=== PATIENT | female | born 1955 | race Caucasian/White ===

== ENCOUNTER 2016-08-10 09:40 | Emergency (ER) | payer SELFPAY ==
[2016-08-10 09:59] VITALS: BP 140/86; PULSE 97; TEMP 99.7; BMI 26.6
--- NOTE | 2016-08-10 10:47 | PDOC ---
History of Present Illness - General Chief Complaint: Cold Symptoms Stated Complaint: COUGH FEVER PAIN Time Seen by Provider: 08/10/16 10:04 History Source: Patient, Family Exam Limitations: No Limitations - History of Present Illness Initial Comments: 08/10/16 10:36 Patient is here with complaints of generalized body aches, nonproductive cough, fevers Tmax 101, earache and sore throat pain. States thinks may have influenza 08/10/16 14:08 Timing/Duration: reports: constant, changing over time, getting worse Severity: reports: moderate Associated Symptoms: reports: cough, dizziness, fever/chills, headache, muscle aches, nasal drainage, sore throat Past History - Travel Traveled outside of the country in the last 30 days: No Close contact w/someone who was outside of country & ill: No - Past Medical History Allergies/Adverse Reactions: Allergies Allergy/AdvReac Type Severity Reaction Status Date / Time No Known Allergies Allergy Verified 08/10/16 09:59 Home Medications: Ambulatory Orders Oseltamivir Phosphate [Tamiflu -] 75 mg PO BID #10 capsule 08/10/16 HTN: Yes Hypercholesterolemia: Yes Psychiatric Problems: Yes (DEPRESSION) - Psycho/Social/Smoking Cessation Hx Suicidal Ideation: No Smoking Status: No Smoking History: Never smoked Number of Cigarettes Smoked Daily: 0 Information on smoking cessation initiated: No Hx Alcohol Use: No Drug/Substance Use Hx: No Substance Use Type: None Respiratory Specific PMHX - Complaint Specific PMHX Angina: No Review of Systems - Review of Systems Able to Perform ROS?: Yes Is the patient limited German proficient: Yes Constitutional: Yes: Symptoms Reported, See HPI, Chills, Fever, Malaise, Weakness HEENTM: Yes: Symptoms Reported Respiratory: Yes: Symptoms reported, See HPI, Cough All Other Systems: Reviewed and Negative *Physical Exam - Vital Signs Last Vital Signs Temp Pulse Resp BP Pulse Ox 99.7 F H 97 H 18 140/86 99 08/10/16 09:55 08/10/16 09:55 08/10/16 09:55 08/10/16 09:55 08/10/16 09:55 - Physical Exam General Appearance: Yes: Nourished, Appropriately Dressed, Apparent Distress, Mild Distress, Moderate Distress HEENT: positive: GRAYSON, Tonsillar Erythema (no exudate or swelling), Rhinorrhea. 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, Fully Oriented, Alert, Normal Mood/ Affect, Normal Response, Motor Strength /5 Progress Note - Progress Note Progress Note: Upper respiratory infection, probable influenza, we'll treat with Tamiflu *DC/Admit/Observation/Transfer Diagnosis at time of Disposition: Upper respiratory infection, acute - Discharge Dispostion Disposition: HOME Condition at time of disposition: Stable Admit: No - Prescriptions Prescriptions: Oseltamivir Phosphate [Tamiflu -] 75 mg PO BID #10 capsule - Patient Instructions Printed Discharge Instructions: DI for Viral Upper Respiratory Infection -- Adult Additional Instructions: Rest, drink lots of fluids: Teas, water, soups, Pedialyte Saltwater gargles Steamy showers/seem to face break up mucus Old-fashioned treatments help! Avoid contact with others until fevers and cough resolved as this is very contagious Lots of handwashing and good hygiene Continue [id number] medications for symptomatic relief Tylenol or Motrin for fever and pain Take all of Tamiflu as directed: 1 tab every 12 hours for 5 days Followup with private physician in one to 2 days as needed or if worsening Return to emergency department for worsened symptoms, fevers, dehydration Influenza takes between 5 and 7 days for resolution To not participate in any activity, work, or school until fevers and cough are gone for at least one day - Post Discharge Activity Work/School Note: Back to Work
== END 2016-08-10 10:57 | disposition home or self-care (01) ==
LOC: JERFT 09:40
DX: J06.9 Acute upper respiratory infection, unspecified (principal); B97.89 Other viral agents as the cause of diseases classified elsewhere; I10 Essential (primary) hypertension; E78.00 Pure hypercholesterolemia, unspecified; F32.9 Major depressive disorder, single episode, unspecified
CPT/HCPCS: 99281-25

== ENCOUNTER 2019-07-13 13:09 | Emergency (ER) | payer OTHER ==
[2019-07-13 13:33] VITALS: BMI 25.9
--- NOTE | 2019-07-13 14:41 | PDOC ---
History of Present Illness - General Chief Complaint: Headache Stated Complaint: HEADACHE History Source: Patient Exam Limitations: No Limitations - History of Present Illness Initial Comments: 63 y/o F, pmh of DM, HTN, HLD, anxiety, depression, presents to the ED c/o of left occipital headache that started on Thursday and has since worsened, aggravated by palpation and not relieved by otc medications. Pt reports that she has not had any headaches or migraines in the past. She had one episode of syncope and htn in December, during which she was seen at [facility] and cleared of any acute pathology. Denies f/c/n/v/d, chest pain, abdominal pain. 07/13/19 14:39 07/13/19 14:56 Associated Symptoms: reports: denies symptoms, headaches. denies: chest pain, nausea/vomiting, shortness of breath Past History - Past Medical History Allergies/Adverse Reactions: Allergies Allergy/AdvReac Type Severity Reaction Status Date / Time No Known Allergies Allergy Verified 07/13/19 13:29 Home Medications: Ambulatory Orders Oseltamivir Phosphate [Tamiflu -] 75 mg PO BID #10 capsule 08/10/16 Ibuprofen [Motrin -] 600 mg PO TID PRN 10 Days tablet 07/13/19 COPD: No HTN: Yes Hypercholesterolemia: Yes Psychiatric Problems: Yes (DEPRESSION) - Immunization History Immunization Up to Date: Yes - Psycho Social/Smoking Cessation Hx Smoking Status: No Smoking History: Never smoked Number of Cigarettes Smoked Daily: 0 Information on smoking cessation initiated: No Hx Alcohol Use: No Drug/Substance Use Hx: No Substance Use Type: None Review of Systems - Review of Systems Able to Perform ROS?: Yes Is the patient limited Stateless proficient: No Constitutional: Yes: Symptoms Reported, Weight Stable. No: Chills, Diaphoresis , Fever HEENTM: Yes: Symptoms Reported. No: Tearing, Ear Pain Respiratory: Yes: Symptoms reported. No: Cough, Orthopnea, Shortness of Breath Cardiac (ROS): Yes: Symptoms Reported. No: Chest Pain, Edema, Chest Tightness ABD/GI: Yes: Symptoms Reported. No: Constipated, Diarrhea, Nausea, Vomiting Neurological: Yes: Symptoms reported, Headache. No: Numbness, Paresthesia, Tremors, Weakness All Other Systems: Reviewed and Negative *Physical Exam - Vital Signs Last Vital Signs Temp Pulse Resp BP Pulse Ox 98.0 F 78 17 132/87 98 07/13/19 13:29 07/13/19 13:29 07/13/19 13:29 07/13/19 13:29 07/13/19 13:29 - Physical Exam General Appearance: Yes: Nourished, Appropriately Dressed HEENT: positive: EOMI, GRAYSON, Normal ENT Inspection, Pharynx Normal, Other (left scalp pain and tenderness, mild erythema ). negative: Photophobia Neck: positive: Trachea midline, Normal Thyroid, Supple Respiratory/Chest: positive: Lungs Clear, Normal Breath Sounds. negative: Crackles, Wheezing Cardiovascular: positive: Regular Rhythm, Regular Rate, S1, S2. negative: Murmur, Gallop/S3, Gallop/S4 Vascular Pulses: Dorsalis-Pedis (R): 2+, Doralis-Pedis (L): 2+ Gastrointestinal/Abdominal: positive: Normal Bowel Sounds, Soft. negative: Guarding, Rebound, Tenderness Neurologic: positive: Fully Oriented, Normal Mood/Affect. 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 ED Treatment Course - LABORATORY CBC & Chemistry Diagram: 07/13/19 15:00 07/13/19 15:00 Medical Decision Making - Medical Decision Making 63 y/o F, pmh of DM, HTN, HLD, anxiety, depression, presents to the ED c/o of left occipital headache that started on Thursday and has since worsened, aggravated by palpation and not relieved by otc medications #Headaches likely 2/2 to allergic reaction vs HTN CBC, CMP CT Head w/out contrast IV tylenol 07/13/19 15:00 Discharge - Discharge Information Problems reviewed: Yes Clinical Impression/Diagnosis: Generalized headaches Condition: Improved Disposition: HOME - Admission No - Additional Discharge Information Prescriptions: Ibuprofen [Motrin -] 600 mg PO TID PRN 10 Days tablet PRN Reason: Headache - Follow up/Referral Referrals: Alma Jurado MD [Primary Care Provider] - John Lynch MD [Staff Physician] - - Patient Discharge Instructions Additional Instructions: You were seen in the emergency room for headaches While in the emergency room, we evaluated you with lab work, blood work and CAT scan of your head. We gave you medications and your symptoms improved. We also found that your CAT scan was normal but there was some mild volume loss noted. It is important that you follow up with a neurologist to address these findings. We have provided you with a neurologist as well. To relieve your headaches, you can take the following medications Motrin as needed for the headaches Please take all your medications as prescribed Please follow up the the neurologist within 1 week Please follow up with your primary care physician within 1 week Return to the emergency room, if you experience worsening of your symptoms, nausea, vomiting, headaches, changes in vision, or any worsening of your condition. - Post Discharge Activity Work/Back to School Note: Back to Work
[2019-07-13] MEDS ORDERED: ACETAMINOPHEN 1000 MG/100 ML VIAL (NON FORMULARY) IVPB ONE (14:42)
[2019-07-13] MEDS ORDERED: ACETAMINOPHEN INJECTION 100 ML IVPB ONE (14:54)
[2019-07-13 15:19] LABS: BASO % 0.5 % (0-2.0); EOS % 1.2 % (0-4.5); HEMATOCRIT 39.9 % (32.4-45.2); LYMPH % 29.6 % (8-40); MCH 26.5 pg (25.7-33.7); MCHC 32.5 g/dl (32.0-36.0); MEAN CELL VOLUME 81.7 fl (80-96); MEAN PLT VOLUME 7.6 fl (7.5-11.1); MONO % 5.7 % (3.8-10.2); PLATELET COUNT 373 K/MM3 (134-434); RBC 4.88 M/mm3 (3.60-5.2); RDW 14.6 % (11.6-15.6); WHITE BLOOD COUNT 6.4 K/mm3 (4.0-10.0)
[2019-07-13 15:58] LABS: ALBUMIN 3.8 g/dl (3.4-5.0); BILIRUBIN,TOTAL 0.2 mg/dL (0.2-1); CALCIUM 9.3 mg/dL (8.5-10.1); CREATININE 0.8 mg/dL (0.55-1.3); TOT PROT 7.2 g/dl (6.4-8.2)
--- NOTE | 2019-07-13 16:55 | PDOC ---
Documentation entered by Sebastian Castillo SCRIBE, acting as scribe for Zeynep Dalton MD. Zeynep Dalton MD: This documentation has been prepared by the Jonathan duron Nirvannie, SCRIBE, under my direction and personally reviewed by me in its entirety. I confirm that the documentation accurately reflects all work, treatment, procedures, and medical decision making performed by me. Attending Attestation - Resident Resident Name: JamacrusHarish - ED Attending Attestation I have performed the following: I have examined & evaluated the patient, The case was reviewed & discussed with the resident, I agree w/resident's findings & plan, Exceptions are as noted - HPI HPI: 07/13/19 14:32 The patient is a 63 year old female, with a significant past medical history of DM, HTN, HLD, anxiety, depression, who presents to the emergency department with 4 days of progressively worsening left sided posterior occipital headache. She denies photophobia or phonophobia. She denies recent fevers, chills, or dizziness. She denies recent nausea, vomiting, diarrhea or constipation. She denies recent dysuria, frequency, urgency or hematuria. She denies recent chest pain or shortness of breath. pt describes her pain as scalp sensitivity and pain. has been constant. no mod factors. has taken tylenol for her pain mild relief. no f/c no trauma. no blurry vision or other vision changes. no weakness. no h/o similar pain. Allergies: NKDA Primary Care Physician: Dr. Jurado 07/13/19 16:52 - Physicial Exam PE: 07/13/19 16:53 awake alert lungs clear bilat heart rrr no mrg abd soft nt nd ext wwp. no edema. no calf tenderness. 5/5 all four ext. no temporal art tenderness. speech clear, CN intact. - Medical Decision Making 07/13/19 16:54 63 yo F here wiht headache. due to fact this is new headache, will obtain ct head, labs pain control and reassess.
[2019-07-13 17:39] VITALS: BP 128/84; PULSE 85; TEMP 98.1
== END 2019-07-13 17:39 | disposition home or self-care (01) ==
LOC: JER 13:09
PROC: 3E033NZ Introduction of Analgesics, Hypnotics, Sedatives into Peripheral Vein, Percutaneous Approach (ICD-10-PCS; principal; 2019-07-13)
DX: R51 Headache (principal); I10 Essential (primary) hypertension; E78.5 Hyperlipidemia, unspecified; E11.9 Type 2 diabetes mellitus without complications; F41.8 Other specified anxiety disorders; F32.9 Major depressive disorder, single episode, unspecified
CPT/HCPCS: 36415; 70450-TC; 80053; 85025; 99282-25; J0131

== ENCOUNTER 2019-08-26 22:25 | Emergency (ER) | payer OTHER ==
[2019-08-26 22:30] VITALS: BP 156/85; PULSE 69; TEMP 97.6; BMI 25.7
--- NOTE | 2019-08-26 23:19 | PDOC ---
History of Present Illness <JoseRadha - Last Filed: 08/27/19 01:12> - General History Source: Patient Exam Limitations: No Limitations - History of Present Illness Initial Comments: 08/26/19 23:20 63yF w PMHx DM, HTN, HLD, anxiety, depression presenting w 3d progressively worsening R constant moderate lumbar paraspinal pain radiating forward to suprapubic region. Used ibuprofen without relief. Denies trauma. Denies fever, diarrhea/constipation, pyuria, vaginal bleeding, ABD distension. <Amarilis,Migel - Last Filed: 08/27/19 07:37> - General Chief Complaint: Pain Stated Complaint: BACK PAIN Time Seen by Provider: 08/26/19 23:19 Past History <GarciaRadha - Last Filed: 08/27/19 01:12> - Past Medical History COPD: No Diabetes: Yes HTN: Yes Hypercholesterolemia: Yes Psychiatric Problems: Yes (DEPRESSION) - Immunization History Immunization Up to Date: Yes - Psycho Social/Smoking Cessation Hx Smoking Status: No Smoking History: Never smoked Number of Cigarettes Smoked Daily: 0 Hx Alcohol Use: No Drug/Substance Use Hx: No Substance Use Type: None <Amarilis,Migel - Last Filed: 08/27/19 07:37> - Past Medical History Allergies/Adverse Reactions: Allergies Allergy/AdvReac Type Severity Reaction Status Date / Time Penicillins Allergy Verified 08/26/19 22:30 ibuprofen AdvReac Verified 08/26/19 22:30 Home Medications: Ambulatory Orders Oseltamivir Phosphate [Tamiflu -] 75 mg PO BID #10 capsule 08/10/16 Ibuprofen [Motrin -] 600 mg PO TID PRN 10 Days tablet 07/13/19 Lidocaine 5% Patch [Lidoderm Patch -] 1 patch TP DAILY #30 patch 08/27/19 Methocarbamol [Robaxin -] 500 mg PO TID #30 tablet 08/27/19 Review of Systems - Review of Systems Constitutional: No: Chills, Fever HEENTM: No: Eye Pain, Nose Pain Respiratory: No: Cough, Shortness of Breath Cardiac (ROS): No: Chest Pain, Palpitations ABD/GI: No: Abdominal Distended, Constipated, Diarrhea, Nausea, Vomiting : No: Burning, Dysuria Musculoskeletal: No: Back Pain, Joint Pain Integumentary: No: Bruising, Flushing Neurological: No: Headache, Numbness, Seizure Psychiatric: No: Anxiety, Depression Endocrine: No: Intolerance to Cold, Intolerance to Heat Hematologic/Lymphatic: No: Anemia, Blood Clots <Migel Olmos - Last Filed: 08/27/19 07:37> *Physical Exam - Vital Signs Last Vital Signs Temp Pulse Resp BP Pulse Ox 97.6 F 69 18 156/85 99 08/26/19 22:28 08/26/19 22:28 08/26/19 22:28 08/26/19 22:28 08/26/19 22:28 <Radha Garcia - Last Filed: 08/27/19 01:12> - Vital Signs Last Vital Signs Temp Pulse Resp BP Pulse Ox 97.6 F 69 18 156/85 99 08/26/19 22:28 08/26/19 22:28 08/26/19 22:28 08/26/19 22:28 08/26/19 22:28 - Physical Exam General Appearance: Yes: Nourished, Appropriately Dressed, Mild Distress HEENT: positive: EOMI, GRAYSON, Normal Voice, Hearing Grossly Normal. negative: Scleral Icterus (R), Scleral Icterus (L) Respiratory/Chest: positive: Lungs Clear, Normal Breath Sounds. negative: Chest Tender, Respiratory Distress Cardiovascular: positive: Regular Rhythm, Regular Rate, S1, S2. negative: Edema , Murmur Female Pelvic Exam: positive: normal external exam, cervical os closed, normal adnexa. negative: CMT, discharge, adnexal tenderness, vaginal bleeding Gastrointestinal/Abdominal: positive: Normal Bowel Sounds, Tender (mild suprapubic), Flat, Soft. negative: Organomegaly Musculoskeletal: positive: Other (R lumbar paraspinal mildly tender). negative : CVA Tenderness (R) Integumentary: positive: Normal Color. 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 negative: Confused, Disoriented <Migel Olmos - Last Filed: 08/27/19 07:37> ED Treatment Course - LABORATORY CBC & Chemistry Diagram: 08/26/19 23:39 08/26/19 23:39 - ADDITIONAL ORDERS Additional order review: Laboratory Results 08/26/19 08/26/19 23:40 23:39 Sodium 139 Potassium 3.9 Chloride 105 Carbon Dioxide 28 Anion Gap 6 L BUN 21.3 H Creatinine 1.1 Est GFR (CKD-EPI)AfAm 61.01 Est GFR (CKD-EPI)NonAf 52.64 Random Glucose 98 Calcium 9.3 Total Bilirubin 0.3 AST 20 ALT 25 Alkaline Phosphatase 69 Total Protein 7.0 Albumin 3.6 Urine Color Yellow Urine Appearance Clear Urine pH 6.5 Ur Specific [place] 1.006 L Urine Protein Negative Urine Glucose (UA) Negative Urine Ketones Negative Urine Blood Negative Urine Nitrite Negative Urine Bilirubin Negative Urine Urobilinogen 0.2 Ur Leukocyte Esterase Negative 08/26/19 23:39 RBC 4.43 MCV 81.4 MCHC 33.2 RDW 14.5 MPV 7.5 Neutrophils % 58.8 Lymphocytes % 31.9 Monocytes % 7.0 Eosinophils % 1.8 Basophils % 0.5 - Medications Given in the ED: ED Medications Discontinued Medications Generic Name Dose Route Start Last Admin Trade Name Mandoq PRN Reason Stop Dose Admin Acetaminophen 1,000 mg 08/26/19 23:30 08/27/19 00:11 Ofirmev Injection - IVPB 08/26/19 23:31 1,000 mg ONCE ONE Administration <Radha Garcia - Last Filed: 08/27/19 01:12> - LABORATORY CBC & Chemistry Diagram: 08/26/19 23:39 08/26/19 23:39 <Migel Olmos - Last Filed: 08/27/19 07:37> Medical Decision Making - Medical Decision Making 08/26/19 23:51 pelvic exam - no vaginal bleeding/discharge, closed cervical os, no cervical/ adnexal tenderness --- 63yF w PMHx DM, HTN, HLD, anxiety, depression presenting w 3d R lumbar paraspinal pain radiating forward to suprapubic region d/t MSK strain. Low concern for appendicitis (no RLQ pain) vs spinal stenosis (neg straight leg raise, no midline vertebral tenderness) vs UTI vs kidney stone (clean UA) Given tylenol, lidocaine patch, robaxin with relief. DC home w PCP f/u, lidocaine patch, robaxin <Migel Olmos - Last Filed: 08/27/19 07:37> Discharge - Discharge Information Problems reviewed: Yes - Admission No <Radha Garcia - Last Filed: 08/27/19 01:12> - Discharge Information Problems reviewed: Yes - Admission No <Migel Olmos - Last Filed: 08/27/19 07:37> - Discharge Information Clinical Impression/Diagnosis: Muscle spasm of back Condition: Improved Disposition: HOME - Additional Discharge Information Prescriptions: Lidocaine 5% Patch [Lidoderm Patch -] 1 patch TP DAILY #30 patch Methocarbamol [Robaxin -] 500 mg PO TID #30 tablet - Patient Discharge Instructions Patient Printed Discharge Instructions: DI for Back Spasm Print Language: ARABIC - Post Discharge Activity Work/Back to School Note: Back to Work
[2019-08-26] MEDS ORDERED: ACETAMINOPHEN 1000 MG/100 ML VIAL (NON FORMULARY) IVPB ONE (23:30)
[2019-08-26 23:58] LABS: PH,URINE 6.5 (5.0-8.0); URINE APPEARANCE CLEAR; URINE BILIRUBIN NEGATIVE (NEGATIVE); URINE COLOR YELLOW; URINE GLUCOSE (UA) NEGATIVE (NEGATIVE); URINE KETONE NEGATIVE (NEGATIVE); URINE LEUK ESTERASE NEGATIVE (NEGATIVE); URINE NITRITE NEGATIVE (NEGATIVE); URINE PROTEIN NEGATIVE (NEGATIVE); URINE UROBILINOGEN 0.2 mg/dL (0.2-1.0)
[2019-08-27] MEDS ORDERED: ACETAMINOPHEN INJECTION 100 ML IVPB ONE
[2019-08-27 00:27] LABS: BASO % 0.5 % (0-2.0); EOS % 1.8 % (0-4.5); LYMPH % 31.9 % (8-40); MCHC 33.2 g/dl (32.0-36.0); MEAN CELL VOLUME 81.4 fl (80-96); MEAN PLT VOLUME 7.5 fl (7.5-11.1); NEUT % 58.8 % (42.8-82.8); PLATELET COUNT 309 K/MM3 (134-434); RBC 4.43 M/mm3 (3.60-5.2); RDW 14.5 % (11.6-15.6); WHITE BLOOD COUNT 6.8 K/mm3 (4.0-10.0)
--- NOTE | 2019-08-27 00:27 | PDOC ---
Attending Attestation - Resident Resident Name: AmarilisMigel - ED Attending Attestation I have performed the following: I have examined & evaluated the patient, The case was reviewed & discussed with the resident, I agree w/resident's findings & plan - HPI HPI: 08/27/19 04:43 Pt comes with right flank pain. 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 She has no abd pain She is able to eat and drink. She has no fever or chills and no systemic symptoms. Pt is concerned that this pain may be something ominous with her urine, though she has no urinary symptoms. - Physicial Exam PE: 08/27/19 04:44 Normal exam Pt has right paraspinal muscle spasm. She has no neuro deficits and no rashes Pt has no fever and no chills and she has no abd pain and normal lungs and heart Agree with resident exam - Medical Decision Making 08/27/19 04:45 Pt was given analgesics and she is feeling better and she is ready to go home. All labs are normal and her UA is normal.
[2019-08-27 00:50] LABS: ALBUMIN 3.6 g/dl (3.4-5.0); BILIRUBIN,TOTAL 0.3 mg/dL (0.2-1); BLOOD UREA NITROGEN 21.3 mg/dL (7-18); CALCIUM 9.3 mg/dL (8.5-10.1); CREATININE 1.1 mg/dL (0.55-1.3); POTASSIUM 3.9 mmol/L (3.5-5.1)
[2019-08-27] MEDS ORDERED: METHOCARBAMOL 500 MG TABLET PO ONE (01:08)
[2019-08-27] MEDS ORDERED: LIDOCAINE 5% TOPICAL PATCH TP ONE (01:10)
[2019-08-27] MEDS ORDERED: METHOCARBAMOL 500 MG TABLET ONE (01:34)
[2019-08-27] MEDS ORDERED: LIDOCAINE 5% TOPICAL PATCH ONE (01:35)
[2019-08-27] MEDS ORDERED: LIDOCAINE PATCH REMOVAL MC SCH (22:00)
--- NOTE | 2019-09-09 14:57 | PDOC ---
Patient Follow-up (Call Back) - Post ED Follow - Up Condition at time of discharge: Improved Disposition at time of original discharge: HOME Reason for Call Back: Radiology - Disposition Additional Instructions/Notes: reviewing of screening renal ultrasound performed by resident. noted incidental possible adnexal cystic structure, possible ovarian cyst. called patient and spoke with patient , told if patient is still having pain should follow up with account executive software sales or return to ED fur further pelvic imaging evaluate possible ovarian cyst. asked to call patient back after 8:30 pm this evening. will attempt to recall chelly arvizu this evening. -ajyla
== END 2019-08-27 01:50 | disposition home or self-care (01) ==
LOC: JER 22:25
PROC: 3E033NZ Introduction of Analgesics, Hypnotics, Sedatives into Peripheral Vein, Percutaneous Approach (ICD-10-PCS; principal; 2019-08-26)
DX: M62.830 Muscle spasm of back (principal); I10 Essential (primary) hypertension; E11.9 Type 2 diabetes mellitus without complications; E78.00 Pure hypercholesterolemia, unspecified; F32.9 Major depressive disorder, single episode, unspecified; Z88.0 Allergy status to penicillin; Z88.6 Allergy status to analgesic agent
CPT/HCPCS: 36415; 80053; 81003; 85025; 87086; 99284-25; J0131

== ENCOUNTER 2019-09-10 17:04 | Emergency (ER) | payer OTHER ==
[2019-09-10 17:16] VITALS: BMI 25.9
--- NOTE | 2019-09-10 17:50 | PDOC ---
History of Present Illness - General Chief Complaint: Pain Stated Complaint: BACK PAIN Time Seen by Provider: 09/10/19 17:27 History Source: Patient Exam Limitations: No Limitations - History of Present Illness Initial Comments: 09/10/19 17:41 Patient is a 63-year-old female with prediabetes, HTN, BTL complaining of right back pain which radiates to the right lower quadrant. This pain has been persistent x1 month. Was seen in the emergency room 2 weeks ago for this pain given naproxen and a patch with no relief of symptoms. 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 Patient was summoned back to the emergency room for possible cyst in that area noted on bedside US 2 weeks ago. PMHX: as above PSOCHX: neg etoh, neg drug, neg cig FamHx: noncontributory ALL: PCN - rash, motrin upset stomach GENERAL/CONSTITUTIONAL: [No fever or chills. No weakness. No weight change.] HEAD, EYES, EARS, NOSE AND THROAT: [No change in vision. No ear pain or discharge. No sore throat.] CARDIOVASCULAR: [No chest pain or shortness of breath.] RESPIRATORY: [No cough, wheezing, or hemoptysis.] GASTROINTESTINAL: [No nausea, vomiting, diarrhea or constipation. No rectal bleeding.] GENITOURINARY: [No dysuria, frequency, or change in urination.] MUSCULOSKELETAL: [No joint or muscle swelling or pain. (-) neck pain (+) back pain.] SKIN AND BREASTS: [No rash or easy bruising.] NEUROLOGIC: [No headache, vertigo, loss of consciousness, or loss of sensation.] PSYCHIATRIC: [No depression or anxiety.] ENDOCRINE: [No increased thirst. No abnormal weight change.] HEMATOLOGIC/LYMPHATIC: [No anemia, easy bleeding, or history of blood clots.] ALLERGIC/IMMUNOLOGIC: [No hives or skin allergy. No latex allergy.] GENERAL: [The patient is awake, alert, and fully oriented, in moderate painful distress.] HEAD: [Normal with no signs of trauma.] EYES: [Pupils equal, round and reactive to light, extraocular movements intact, sclera anicteric, conjunctiva clear.] ENT: [Ears normal, nares patent, oropharynx clear without exudates. Moist mucous membranes.] NECK: [Normal range of motion, supple without lymphadenopathy, JVD, or masses.] LUNGS: [Breath sounds equal, clear to auscultation bilaterally. No wheezes, and no crackles.] HEART: [Regular rate and rhythm, normal S1 and S2 without murmur, rub.] ABDOMEN: [Soft, (+) tender right lower quadrant, normoactive bowel sounds. No guarding, no rebound. No masses, RCVAT.] EXTREMITIES: [Normal range of motion, no edema. No clubbing or cyanosis. No cords, erythema, or tenderness.] NEUROLOGICAL: [Cranial nerves II through XII grossly intact. Normal speech, nor mal gait.] PSYCH: [Normal mood, normal affect.] SKIN: [Warm, Dry, normal turgor, no rashes or lesions noted.] Past History - Past Medical History Allergies/Adverse Reactions: Allergies Allergy/AdvReac Type Severity Reaction Status Date / Time Penicillins Allergy Verified 09/10/19 17:12 ibuprofen AdvReac Verified 09/10/19 17:12 Home Medications: Ambulatory Orders Lidocaine 5% Patch [Lidoderm Patch -] 1 patch TP DAILY #30 patch 08/27/19 Methocarbamol [Robaxin -] 500 mg PO TID #30 tablet 08/27/19 Ondansetron HCl [Zofran] 4 mg PO TID #20 tablet 09/10/19 Oxycodone HCl/Acetaminophen [Percocet 5-325 mg Tablet] 1 - 2 tab PO Q4H 4 Days #20 tablet MDD 6 09/10/19 COPD: No Diabetes: Yes HTN: Yes Hypercholesterolemia: Yes Psychiatric Problems: Yes (DEPRESSION) - Immunization History Immunization Up to Date: Yes - Psycho Social/Smoking Cessation Hx Smoking Status: No Smoking History: Never smoked Number of Cigarettes Smoked Daily: 0 Hx Alcohol Use: No Drug/Substance Use Hx: No Substance Use Type: None *Physical Exam - Vital Signs Last Vital Signs Temp Pulse Resp BP Pulse Ox 98.0 F 87 18 129/81 100 09/10/19 17:13 09/10/19 17:13 09/10/19 17:13 09/10/19 17:13 09/10/19 17:13 ED Treatment Course - LABORATORY CBC & Chemistry Diagram: 09/10/19 18:00 09/10/19 18:00 Medical Decision Making - Medical Decision Making 09/10/19 17:41 Patient is a 63-year-old female with prediabetes, HTN, BTL complaining of right back pain which radiates to the right lower quadrant. This pain has been persistent x1 month. Was seen in the emergency room 2 weeks ago for this pain given naproxen and a patch with no relief of symptoms. 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 Patient was summoned back to the emergency room for possible cyst in that area noted on bedside US 2 weeks ago. Patient was called back for evaluation of cystic structure in the right pelvis. Labs Ultrasound, if negative will get CAT scan abdomen pelvis 09/10/19 20:31 Patient Full Name: SAGE GRIFFIN Patient Accession No: [id number] Patient : [id number] Reason for Exam: pain Referring Physician: PATRICE GEORGE Patient Name: BURAK CAZARES THIS IS A PRELIMINARY REPORT FROM [facility] DATE OF SERVICE: 2019-09-10 18:10:38 IMAGES: 54 EXAM: US PELVIC COMPLETE US TRANSVAGINAL REASON FOR EXAM: Pain COMPARISON: None FINDINGS: The anteverted uterus is normal in echotexture and without discrete fibroids or mass. The uterus measures 5.7 x 3.0 x 4.0 cm. The endometrial stripe is normal for age at 1 mm. There is no free fluid seen in the pelvis. The ovaries are nonvisualized. A large anechoic cyst in the left adnexa measures 6.6 x 4.6 x 6.4 cm with small solid echogenic nodule along the periphery measures 1.3 x 0.8 x 1.2 cm. IMPRESSION: Large left adnexal cyst with small solid peripheral component, possible ovarian cystic neoplasm, paraovarian cyst, resolving hemorrhagic cyst, peritoneal inclusion cyst. THIS DOCUMENT HAS BEEN ELECTRONICALLY SIGNED Silvia Baeza D.O. 09/10/2019 19:42 EST [place] Please call [facility] [phone] ([phone]) with questions. 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 09/10/19 21:44 Patient given copies of the CAT scan and ultrasound for follow-up with FONDANT MACHINE OPERATOR immediately. I discussed the physical exam findings, ancillary test results and final diagnoses with the patient. I answered all of the patient's questions. The patient was satisfied with the care received and felt comfortable with the discharge plan and treatment plan. The Patient agrees to follow up with the primary care physician within 24-72 hours. Discharge - Discharge Information Problems reviewed: Yes Clinical Impression/Diagnosis: Abdominal pain Qualifiers: Abdominal location: right lower quadrant Qualified Code(s): R10.31 - Right lower quadrant pain Condition: Stable Disposition: HOME - Additional Discharge Information Prescriptions: Oxycodone HCl/Acetaminophen [Percocet 5-325 mg Tablet] 1 - 2 tab PO Q4H 4 Days #20 tablet MDD 6 Ondansetron HCl [Zofran] 4 mg PO TID #20 tablet - Follow up/Referral Referrals: Alma Jurado MD [Primary Care Provider] - Paulina Ghotra MD [Staff Physician] - - Patient Discharge Instructions Additional Instructions: Your Discharge Instructions: You must call primary care physician within 24 hours to arrange follow-up. Return to the Emergency Department with any new, persistent or worsening symptoms, for fever, chills, SOB, dizziness or any other concerning changes that may occur. Your FONDANT MACHINE OPERATOR has recommended follow-up with Dr. Smith in [facility] [phone]. - Post Discharge Activity
[2019-09-10 18:09] LABS: BASO % 0.5 % (0-2.0); EOS % 2.6 % (0-4.5); HEMOGLOBIN 12.6 GM/dL (10.7-15.3); LYMPH % 29.3 % (8-40); MCHC 33.1 g/dl (32.0-36.0); MEAN CELL VOLUME 81.6 fl (80-96); MEAN PLT VOLUME 7.8 fl (7.5-11.1); MONO % 6.2 % (3.8-10.2); NEUT % 61.4 % (42.8-82.8); PLATELET COUNT 358 K/MM3 (134-434); RBC 4.66 M/mm3 (3.60-5.2); RDW 14.8 % (11.6-15.6); WHITE BLOOD COUNT 6.6 K/mm3 (4.0-10.0)
[2019-09-10] MEDS ORDERED: morphine CARPU-JECT 2 MG/1 ML DISP.SYRIN IVPUSH ONE (18:20)
[2019-09-10] MEDS ORDERED: MORPHINE SULFATE 2 MG/ML VIAL ONE (18:28)
[2019-09-10 18:31] LABS: ALBUMIN 4.1 g/dl (3.4-5.0); BILIRUBIN,TOTAL 0.2 mg/dL (0.2-1); CALCIUM 9.3 mg/dL (8.5-10.1); TOT PROT 7.3 g/dl (6.4-8.2)
[2019-09-10 20:35] VITALS: TEMP 97.8
[2019-09-10] MEDS ORDERED: ONDANSETRON 4 MG TABLET PO ONE (21:50)
[2019-09-10] MEDS ORDERED: ONDANSETRON 8 MG TABLET (FP) PO ONE (22:08)
[2019-09-10 22:13] VITALS: BP 127/90; PULSE 78
== END 2019-09-10 22:12 | disposition home or self-care (01) ==
LOC: JER 17:04 → SUPCPDRO 17:04 → JER 22:12
PROC: 3E033NZ Introduction of Analgesics, Hypnotics, Sedatives into Peripheral Vein, Percutaneous Approach (ICD-10-PCS; principal; 2019-09-10)
DX: R10.31 Right lower quadrant pain (principal); N83.8 Other noninflammatory disorders of ovary, fallopian tube and broad ligament; Z88.5 Allergy status to narcotic agent; Z88.0 Allergy status to penicillin
CPT/HCPCS: 36415; 74177-TC; 76830-TC; 80053; 85025; 99285-25; Q9967

== ENCOUNTER 2021-04-27 15:08 | Emergency (ER) | payer OTHER ==
[2021-04-27 15:21] VITALS: BP 159/95; PULSE 75; TEMP 98.3; BMI 23.3
[2021-04-27] MEDS ORDERED: METHOCARBAMOL 500 MG TABLET PO ONE (16:19)
[2021-04-27] MEDS ORDERED: ACETAMINOPHEN 500 MG TABLET (FP) PO ONE (16:20)
[2021-04-27] MEDS ORDERED: ACETAMINOPHEN 500 MG TABLET (FP) ONE (16:25)
[2021-04-27] MEDS ORDERED: METHOCARBAMOL 500 MG TABLET ONE (16:25)
== END 2021-04-27 19:24 | disposition home or self-care (01) ==
LOC: JERFT 15:08
DX: M62.838 Other muscle spasm (principal); M79.651 Pain in right thigh; M54.50 Low back pain, unspecified; W19.XXXA Unspecified fall, initial encounter; Y92.9 Unspecified place or not applicable
CPT/HCPCS: 72050-TC-FY; 72100-TC-FY; 72170-TC-FY; 73030-TC-RT-FY; 99284-25